=== PATIENT | female | born 1965 | race African-American/Black ===

== ENCOUNTER 2018-11-11 09:35 | Emergency (ER) | payer BC ==
[~2018-11-11] VITALS: Ht 160 cm; Wt 76.7 kg
[~2018-11-11 09:35] MED LIST: AMLODIPINE BESY10 MG PO; CARVEDILOL6.25 MG PO; COZAAR100 MG PO; ERGOCALCIF50000 UNIT PO; FISH OIL 1,001000 M1 PO; OXYCODONE HCL10 M1 PO; PREDNISONE 10 M10 MG PO
[2018-11-11 09:49] VITALS: BP 153/84
[2018-11-11] MEDS ORDERED: PROMETHAZINE V118 M1 PO (12:44)
[2018-11-11] MEDS ORDERED: DOXYCYCLINE 10100 MG PO (12:44)
[2018-11-11] MEDS ORDERED: TESSALON PERLE100 MG PO (12:44)
== END 2018-11-11 12:53 | disposition home or self-care (01) ==
LOC: ER 09:35
DX: J18.9 Pneumonia, unspecified organism (principal); I12.9 Hypertensive chronic kidney disease with stage 1 through stage 4 chronic kidney disease, or unspecified chronic kidney disease; N18.3 Chronic kidney disease, stage 3 (moderate); M32.9 Systemic lupus erythematosus, unspecified; M19.90 Unspecified osteoarthritis, unspecified site; Z90.49 Acquired absence of other specified parts of digestive tract; Z88.2 Allergy status to sulfonamides